=== PATIENT | female | born 1985 | race Caucasian/White ===

== ENCOUNTER 2020-06-02 04:04 | Emergency (ER) | payer BC ==
[2020-06-02 04:10] VITALS: PULSE 80; RESP 18; TEMP 98.5
[2020-06-02] MEDS ORDERED: SODIUM CHLORIDE 0.9% 1,000 ML IV STA (04:40)
[2020-06-02] MEDS ORDERED: KETOROLAC 15 MG/ML 1 ML VIAL IVP STA (04:41)
--- NOTE | 2020-06-02 04:48 | ED ---
General Adult HPI - General Chief complaint: Back Pain/Injury Stated complaint: KENISHA Time Seen by Provider: 06/02/20 04:13 Source: patient Mode of arrival: ambulatory Limitations: no limitations - History of Present Illness Initial comments: Penny is a 34-year-old female who presents the ER today he a private vehicle for evaluation of right-sided posterior pleuritic back pain. Patient reports she's having pain in her right posterior lung and flank area. Patient reports that pain as a severe stabbing worse with any deep inspiration. Seems to be bet ter if she is not moving at all.Associated shortness of breath, fevers, chills or cough. No recent illness. No dysuria or hematuria or history of kidney stones. She does have a distant history of a provoked DVT which occurred when she was on control and had an injury to her leg requiring immobilization. No family history of clotting disorder. She is no longer on anticoagulation. - Related Data Previous Rx's Medication Instructions Recorded Ibuprofen [Motrin] 600 mg PO Q8HR PRN #30 tab 06/02/20 predniSONE [Deltasone] 40 mg PO DAILY 5 Days #10 tab 06/02/20 Allergies Allergy/AdvReac Type Severity Reaction Status Date / Time erythromycin base Allergy Nausea & Verified 06/02/20 04:10 Vomiting sulfamethoxazole Allergy Rash/Hives Verified 06/02/20 04:10 [From Bactrim] trimethoprim [From Bactrim] Allergy Rash/Hives Verified 06/02/20 04:10 Review of Systems ROS Statement: Those systems with pertinent positive or pertinent negative responses have been documented in the HPI. ROS Other: All systems not noted in ROS Statement are negative. Past Medical History Past Medical History: Asthma, Deep Vein Thrombosis (DVT) History of Any Multi-Drug Resistant Organisms: None Reported Past Surgical History: Section Past Psychological History: No Psychological Hx Reported Smoking Status: Former smoker Past Alcohol Use History: Rare Past Drug Use History: None Reported General Exam - General Exam Comments Initial Comments: Physical Exam GENERAL: Patient is well-developed and well-nourished. Patient is nontoxic and well-hydrated Appears uncomfortable HENT: Normocephalic, Atraumatic. EYES: PERRL, EOMI PULMONARY: Shallow, unlabored respirations. No audible rales rhonchi or wheezing was noted. CARDIOVASCULAR: There is a regular rate and rhythm without any murmurs gallops or rubs. ABDOMEN: Soft and nontender with normal bowel sounds. No tenderness to percussion of the flanks SKIN: Skin is clear with no lesions or rashes and otherwise unremarkable. : Deferred NEUROLOGIC: Patient is alert and oriented x3. Moving all extremities spontaneously MUSCULOSKELETAL: Normal extremities with adequate strength and full range of motion. No lower extremity swelling or edema. No calf tenderness. PSYCHIATRIC: Normal psychiatric evaluation. Limitations: no limitations Course Vital Signs 06/02/20 04:07 Temperature 98.5 F Pulse Rate 80 Respiratory 18 Rate Blood Pressure 133/90 O2 Sat by Pulse 97 Oximetry EKG Findings - EKG Comments: EKG Findings:: EKG was obtained at 4:19 AM, rate is 81 rhythm is sinus there is a normal axis, normal intervals, MO 134, QRS 80, QTC [address] elevations or depressions no evidence of acute ischemia, infarction or acute right heart strain. Medical Decision Making - Medical Decision Making The patient was seen and evaluated, history is obtained from patient History and physical exam are concerning for pleuritic right-sided chest pain, no flank pain and no lower urinary tract symptoms to suggest this could be deferred pain from a kidney stone, no abdominal pain nausea or vomiting Chest x-ray and labs were obtained EKG is nonischemic with no signs of right heart strain Labs were relatively unremarkable there's mild leukocytosis likely reactive to pain, D-dimer not elevated Patient was reevaluated and had improvement in her pain after Toradol. Results were discussed with the patient is comfortable with the plan for discharge home with anti-inflammatories and steroids for likely pleuritic chest pain. All questions pertaining care were answered close return parameters were discussed with the patient was discharged home in stable condition. - Lab Data Result diagrams: 06/02/20 04:45 06/02/20 04:45 Lab Results 06/02/20 06/02/20 06/02/20 Range/Units 04:45 04:45 04:45 WBC 13.7 H (3.8-10.6) k/uL RBC 5.66 H (3.80-5.40) m/uL Hgb 14.7 (11.4-16.0) gm/dL Hct 45.4 (34.0-46.0) % MCV 80.2 (80.0-100.0) fL MCH 26.0 (25.0-35.0) pg MCHC 32.4 (31.0-37.0) g/dL RDW 14.7 (11.5-15.5) % Plt Count 250 (150-450) k/uL Neutrophils % 75 % Lymphocytes % 15 % Monocytes % 5 % Eosinophils % 4 % Basophils % 0 % Neutrophils # 10.3 H (1.3-7.7) k/uL Lymphocytes # 2.0 (1.0-4.8) k/uL Monocytes # 0.6 (0-1.0) k/uL Eosinophils # 0.5 (0-0.7) k/uL Basophils # 0.1 (0-0.2) k/uL D-Dimer 0.47 (<0.60) mg/L FEU Sodium (137-145) mmol/L Potassium (3.5-5.1) mmol/L Chloride (98-107) mmol/L Carbon Dioxide (22-30) mmol/L Anion Gap mmol/L BUN (7-17) mg/dL Creatinine (0.52-1.04) mg/dL Est GFR (CKD-EPI)AfAm (>60 ml/min/1.73 sqM) Est GFR (CKD-EPI)NonAf (>60 ml/min/1.73 sqM) Glucose (74-99) mg/dL Calcium (8.4-10.2) mg/dL Total Bilirubin (0.2-1.3) mg/dL AST (14-36) U/L ALT (4-34) U/L Alkaline Phosphatase (38-126) U/L Total Protein (6.3-8.2) g/dL Albumin (3.5-5.0) g/dL Urine Color Yellow Urine Appearance Clear (Clear) Urine pH 5.0 (5.0-8.0) Ur Specific [place] 1.021 (1.001-1.035) Urine Protein Negative (Negative) Urine Glucose (UA) Negative (Negative) Urine Ketones Negative (Negative) Urine Blood Negative (Negative) Urine Nitrite Negative (Negative) Urine Bilirubin Negative (Negative) Urine Urobilinogen <2.0 (<2.0) mg/dL Ur Leukocyte Esterase Negative (Negative) 06/02/20 Range/Units 04:45 WBC (3.8-10.6) k/uL RBC (3.80-5.40) m/uL Hgb (11.4-16.0) gm/dL Hct (34.0-46.0) % MCV (80.0-100.0) fL MCH (25.0-35.0) pg MCHC (31.0-37.0) g/dL RDW (11.5-15.5) % Plt Count (150-450) k/uL Neutrophils % % Lymphocytes % % Monocytes % % Eosinophils % % Basophils % % Neutrophils # (1.3-7.7) k/uL Lymphocytes # (1.0-4.8) k/uL Monocytes # (0-1.0) k/uL Eosinophils # (0-0.7) k/uL Basophils # (0-0.2) k/uL D-Dimer (<0.60) mg/L FEU Sodium 135 L (137-145) mmol/L Potassium 4.1 (3.5-5.1) mmol/L Chloride 104 (98-107) mmol/L Carbon Dioxide 22 (22-30) mmol/L Anion Gap 9 mmol/L BUN 11 (7-17) mg/dL Creatinine 0.85 (0.52-1.04) mg/dL Est GFR (CKD-EPI)AfAm >90 (>60 ml/min/1.73 sqM) Est GFR (CKD-EPI)NonAf >90 (>60 ml/min/1.73 sqM) Glucose 123 H (74-99) mg/dL Calcium 9.2 (8.4-10.2) mg/dL Total Bilirubin 0.8 (0.2-1.3) mg/dL AST 22 (14-36) U/L ALT 24 (4-34) U/L Alkaline Phosphatase 95 (38-126) U/L Total Protein 7.0 (6.3-8.2) g/dL Albumin 4.1 (3.5-5.0) g/dL Urine Color Urine Appearance (Clear) Urine pH (5.0-8.0) Ur Specific [place] (1.001-1.035) Urine Protein (Negative) Urine Glucose (UA) (Negative) Urine Ketones (Negative) Urine Blood (Negative) Urine Nitrite (Negative) Urine Bilirubin (Negative) Urine Urobilinogen (<2.0) mg/dL Ur Leukocyte Esterase (Negative) Disposition Clinical Impression: Pleuritic pain Disposition: HOME SELF-CARE Condition: Stable Additional Instructions: As we discussed your chest xray was normal, your labs are normal and your d- dimer (marker of blood clots) is not elevated. At this time I believe your pain is due to inflammation around the lung This will be treated with steroids and anti-inflammatories (Motrin 600mg 4x daily) Be sure to continue to take deep breaths to prevent development of pneumonia Follow up with her primary care provider the beginning of next week for reevaluation Return to the ER if you have any worsening of condition develop any fevers, shortness of breath or any new or concerning symptoms Prescriptions: predniSONE [Deltasone] 40 mg PO DAILY 5 Days #10 tab Ibuprofen [Motrin] 600 mg PO Q8HR PRN #30 tab PRN Reason: Pain Is patient prescribed a controlled substance at d/c from ED?: No Referrals: Nonstaff,Physician [Primary Care Provider] - 1-2 days
[2020-06-02 05:02] LABS: Basophils # (A) 0.1 k/uL (0-0.2); Basophils % (A) 0 %; Eosinophils # (A) 0.5 k/uL (0-0.7); Eosinophils % (A) 4 %; HCT 45.4 % (34.0-46.0); HGB 14.7 gm/dL (11.4-16.0); Lymphocytes % (A) 15 %; MCHC 32.4 g/dL (31.0-37.0); MCV 80.2 fL (80.0-100.0); Mean Platelet Volume 8.8; Monocytes # (A) 0.6 k/uL (0-1.0); Monocytes % (A) 5 %; Neutrophils # (A) 10.3 k/uL (1.3-7.7); Neutrophils % (A) 75 %; Platelet Count 250 k/uL (150-450); RBC 5.66 m/uL (3.80-5.40); RDW 14.7 % (11.5-15.5); WBC 13.7 k/uL (3.8-10.6)
[2020-06-02 05:04] LABS: Appearance,Urine Clear (Clear); Bilirubin,Urine Negative (Negative); Blood,Urine Negative (Negative); Color,Urine Yellow; Glucose,Urine (UA) Negative (Negative); Ketones,Urine Negative (Negative); Leukocyte Esterase,Urine Negative (Negative); Nitrite,Urine Negative (Negative); Protein,Urine Negative (Negative); Specific Gravity,Urine 1.021 (1.001-1.035); Urobilinogen,Urine <2.0 mg/dL (<2.0)
[2020-06-02 05:13] LABS: ALT 24 U/L (4-34); AST 22 U/L (14-36); African American GFR (CKD) >90 (>60 ml/min/1.73 sqM); Albumin 4.1 g/dL (3.5-5.0); Alkaline Phosphatase 95 U/L (38-126); Anion Gap 9 mmol/L; Blood Urea Nitrogen 11 mg/dL (7-17); Calcium 9.2 mg/dL (8.4-10.2); Carbon Dioxide 22 mmol/L (22-30); Chloride 104 mmol/L (98-107); Glucose 123 mg/dL (74-99); Non-African American GFR(CKD) >90 (>60 ml/min/1.73 sqM); Potassium 4.1 mmol/L (3.5-5.1); Sodium 135 mmol/L (137-145); Total Bilirubin 0.8 mg/dL (0.2-1.3)
--- NOTE | 2020-06-02 05:33 | XR ---
EXAMINATION TYPE: XR chest 2V DATE OF EXAM: 06/02/2020 COMPARISON: NONE HISTORY: Chest pain TECHNIQUE: 2 views FINDINGS: Heart and mediastinum are normal. There is increased density at the right cardiac border th at is probably due to large pericardial fat pad. There is no pleural effusion. Bony thorax is intact. IMPRESSION: No active cardiopulmonary disease. Normal heart.
[2020-06-02 06:07] VITALS: BP 125/89
== END 2020-06-02 06:08 | disposition home or self-care (01) ==
LOC: EC 04:04
DX: R07.81 Pleurodynia (principal); D72.829 Elevated white blood cell count, unspecified; Z88.1 Allergy status to other antibiotic agents; Z88.2 Allergy status to sulfonamides; Z87.891 Personal history of nicotine dependence
CPT/HCPCS: 36415; 93005; 85379; 80053; 85025; 81003; 71046; 99285; 96374; 96361; J1885